=== PATIENT | female | born 1990 | race Caucasian/White ===

== ENCOUNTER 2019-12-26 07:30 | Outpatient (CLI) | payer OTHER ==
--- NOTE | 2019-12-26 09:12 | RAD ---
FOUR VIEWS LUMBOSACRAL SPINE: COMPARISON: None. HISTORY: Low back pain that radiates down the right leg. FINDINGS: AP, lateral, and flexion/extension views of the lumbosacral spine show normal height and alignment of the vertebral bodies and intervertebral disk without fracture or subluxation. No significant degene rative changes are seen. No significant change in alignment is seen with bending. IMPRESSION: No significant abnormality. POS: [facility]
== END 2019-12-26 07:31 | disposition home or self-care (01) ==
LOC: TBSIIMAG 07:30
PROVIDERS: ATTEND Neurological Surgery
DX: M54.5 Low back pain (principal)
CPT/HCPCS: 72120